=== PATIENT | male | born 1950 | race Caucasian/White ===

== ENCOUNTER 2024-07-20 07:37 | Day surgery (SDC) | payer OTHER ==
[2024-07-17 15:52] LABS: Absolute Basophils 0.1 K/uL (0-0.5); Absolute Eosinophils 0.2 K/uL (0-0.5); Absolute Lymphocytes (CBC) 2.1 K/uL (0.7-4.9); Basophils % 0.6 % (0-1.3); Eosinophils % 1.9 % (0-4.4); Hematocrit 49.4 % (39.6-49.0); Hemoglobin 15.8 g/dL (13.6-17.9); Lymphocytes % 16.9 % (15.3-44.8); MCH 30.8 pg (27.0-35.0); MCV 96.2 fL (80-100); MPV 8.1 fL (7.6-11.3); Neutrophils % 72.6 % (41.7-73.7); Platelets 278 thou/uL (152-406); RBC Red Blood Cell Count 5.14 M/uL (4.33-5.43); Red Cell Distribution Width 15.4 % (12.1-15.2)
[2024-07-17 16:03] LABS: Anion Gap 8.8 mEq/L (5.0-15.0); Potassium 4.8 mEq/L (3.5-5.1)
--- NOTE | 2024-07-17 16:39 | RAD REPORT ---
Procedure: Chest Pa And Lat (2 Views) HISTORY: Preop for hernia repair. Hypertension. COMPARISON: 2022 FINDINGS: Vague opacity right lung base. Remainder lungs appear clear. Heart is normal size. No significant pleural effusion noted. The heart is normal size. IMPRESSION: Vague opacity right lung base probably not significant. Follow-up chest film in 3 months recommended for reevaluation
[2024-07-20] MEDS ORDERED: KETOROLAC 30 MG/ML INJ ONE (08:15)
[2024-07-20] MEDS ORDERED: ONDANSETRON 4 MG/2 ML VIAL ONE (08:15)
[2024-07-20] MEDS ORDERED: FENTANYL CITR 100 MCG/2 ML ONE (08:15)
[2024-07-20] MEDS: NA CHLORIDE 0.9% 1,000 ML ONE (08:15)
[2024-07-20] MEDS ORDERED: ROCURONIUM 50 MG/5 ML VIAL IV ONE ×2 (08:15→09:50)
[2024-07-20] MEDS ORDERED: LIDOCAINE 2% MPF 5 ML VIAL ONE (08:15)
[2024-07-20] MEDS ORDERED: propofoL 200 MG/20 ML VIAL IV ONE (08:15)
[2024-07-20] MEDS ORDERED: dexAMETHasone 4 MG/ML VIAL ONE (08:15)
[2024-07-20] MEDS: INSULIN REGULAR (HUMAN) 100 UNIT/ML ONE (08:46)
[2024-07-20] MEDS: ALBUTEROL INHALER 200 PUFF/6.7 GM IH ONE (08:47)
[2024-07-20] MEDS: CEFAZOLIN SODIUM 1 GM/VIAL ONE (09:06)
[2024-07-20] MEDS: NA CHLORIDE 0.9% 500 ML ONE (09:15)
[2024-07-20] MEDS ORDERED: SUGAMMADEX SODIUM 200 MG/2 ML VIAL IV ONE (10:20)
--- NOTE | 2024-07-20 10:35 | P.BOP ---
Preoperative diagnosis: incarcerated umbilical hernia Postoperative diagnosis: same Primary procedure: Laparoscopic repair of incarcerated umbilical hernia with mesh Estimated blood loss: <20cc Specimen: sac with incarcerated omentum Findings: large amt of incarcerated omentum that was ligated Anesthesia: General Complications: None Drain(s): Other Implants: medium ventralex Transferred to: Recovery Room Condition: Good
--- NOTE | 2024-07-20 12:08 | EKG ---
Test Date: 2024-07-17 Test Time: 16:25:21 Agile Scrum Master: HILDA MEASUREMENT RESULTS: Intervals: Rate: 89 WY: 140 QRSD: 124 QT: 376 QTc: 457 [place]: P: 74 W[place]: 140 QRS: 80 T: 15 INTERPRETIVE STATEMENTS: Normal sinus rhythm Right bundle branch block Abnormal ECG No previous ECG available for comparison Electronically Signed On 07-20-24 12:06:22 SIDE STITCHING MACHINE OPERATOR by Ed Kohli
[2024-07-20 12:31] VITALS: BP 126/70; TEMP 97; O2SAT 90
== END 2024-07-20 12:28 | disposition home or self-care (01) ==
LOC: OR 07:37
PROVIDERS: ATTEND Surgery
PROC: 0WUF4JZ Supplement Abdominal Wall with Synthetic Substitute, Percutaneous Endoscopic Approach (ICD-10-PCS; principal; 2024-07-20 09:15)
DX: K42.0 Umbilical hernia with obstruction, without gangrene (principal); J44.9 Chronic obstructive pulmonary disease, unspecified; E11.9 Type 2 diabetes mellitus without complications; G47.33 Obstructive sleep apnea (adult) (pediatric)
CPT/HCPCS: 93005; 85025; 80048; 36415; 82947 ×2; 88302; 71046; 49596; J2704; J1100; J2003; J3010; J2405; J7040; J7030; J0690